=== PATIENT | male | born 1970 | race Caucasian/White ===

== ENCOUNTER 2023-12-22 21:28 | Emergency (ER) | payer OTHER, SELFPAY ==
--- NOTE | ~2023-12-22 | XR_ITS ---
EXAMINATION: [id number] DATE: 12/22/2023 23:43 INDICATION: Cervical radiculopathy. Left arm numbness. TECHNIQUE: 3 views of cervical spine were obtained. COMPARISON: Cervical spine radiographs 03/29/2014 FINDINGS: There is 2 mm anterolisthesis of C7 on T1. There is mildly decreased disc height at C3-C4 a nd C5-C6 and moderately decreased disc height at C6-C7. There is multilevel facet joint osteoarthriti s, severe at multiple levels bilaterally. There is mild central canal stenosis at C3-C4, C4-C5, C5-C6 , and C6-C7. No prevertebral soft tissue swelling. IMPRESSION: 1. Moderate cervical spondylosis. Reviewed, dictated and finalized at location E.
[2023-12-22 21:31] VITALS: BP 176/80; PULSE 90; RESP 16; TEMP 36.6; O2SAT 99
[2023-12-22 21:45] VITALS: BP 162/83; PULSE 92; RESP 18; O2SAT 100
[2023-12-22 21:47] LABS: Basophils Percent Auto 0.3 % (0.2-1.2); Eosinophils Absolute Auto 0.1 K/mm3 (0-0.3); Eosinophils Percent Auto 0.8 % (0-4.4); Hemoglobin 13.7 g/dL (14.0-18.0); Immature Granulocyte Absolute 0.04 K/mm3 (0.00-0.031); Immature Granulocyte Percent A 0.3 % (0-0.5); Lymphocytes Absolute Auto 4.19 K/mm3 (0.9-3.2); Lymphocytes Percent Auto 34.8 % (18.3-44.2); Mean Corpuscular HGB Conc 32.6 g/dl (32-36); Mean Corpuscular Hemoglobin 29.7 pg (26-34); Mean Corpuscular Volume 90.9 fl (80-100); Monocytes Absolute Auto 0.6 K/mm3 (0.1-0.6); Monocytes Percent Auto 4.9 % (2.6-8.5); Neutrophils Absolute Auto 7.1 K/mm3 (1.3-6.7); Neutrophils Percent Auto 58.9 % (45.5-73.1); Platelet Count Result 181 k/mm3 (150-375); Red Blood Count 4.62 M/mm3 (4.6-6.20); Red Cell Distribution Width 13.4 % (11.5-14.5); White Blood Count 12.1 K/mm3 (4.5-10.0)
[2023-12-22 21:49] VITALS: BP 161/83; BP 162/83; PULSE 85; PULSE 86
[2023-12-22 21:50] VITALS: BP 152/86; PULSE 95
[2023-12-22 22:01] VITALS: BP 149/80; PULSE 78; RESP 18; O2SAT 96
[2023-12-22 22:22] LABS: Alanine Aminotransferase 25 U/L (6-50); Alkaline Phosphatase 70 U/L (38-126); Anion Gap 10 mmol/L (4-12); Aspartate Amino Transferase 28 U/L (17-59); Bilirubin,Total 0.6 mg/dL (0.2-1.3); Blood Urea Nitrogen 22 mg/dL (9-20); Calcium 9.1 mg/dL (8.4-10.2); Carbon Dioxide 29 mmol/L (22-30); Chloride 100 mmol/L (98-107); Estimated CRCL calculation 78 ml/min; Estimated Glomerular Filt Rate > 60; Glucose 132 mg/dL (65-110); Lipase 168 U/L (23-300); Potassium 4.2 mmol/L (3.4-5.0); Sodium 139 mmol/L (137-145)
[2023-12-22 22:44] LABS: Appearance Urine Clear (Clear); Bilirubin Urine Negative (Negative); Blood Urine Negative (Negative); Color Urine Yellow (Yellow); Glucose Urine UA Negative (Negative); Ketones Urine Trace mg/dL (Negative); Leukocyte Esterase Ur Negative LEU/UL (Negative); Nitrate Urine Negative (Negative); Protein Urine Negative (Negative); Specific Grav Ur 1.007 (1.001-1.035); Urobilinogen Urine 0.2 mg/dL (<2.0); pH Urine 5.5 (5.0-9.0)
[2023-12-22 22:46] LABS: Add Urine Microscopic? NO
--- NOTE | 2023-12-22 23:15 | ECG_ITS ---
Test Date: 2023-12-22 23:27:38 Measurements Intervals [place] Rate: 69 P: 54 MO: 157 QRS: -80 QRSD: 118 T: 46 QT: 414 QTc: 445 Interpretive Statements SINUS RHYTHM LOW QRS VOLTAGE IN PRECORDIAL LEADS INCOMPLETE RIGHT BUNDLE BRANCH BLOCK LEFT ANTERIOR FASCICULAR BLOCK BASELINE ARTIFACT- I, AVR, AVL ABNORMAL ECG No previous ECG available for comparison Electronically Signed On 12-23-2023 06:46:20 CDT by Brett Valdivia D.O.
[2023-12-22 23:41] LABS: Troponin I < 0.012 ng/mL (0.000-0.034)
--- NOTE | 2023-12-22 23:48 | ED.GENADULT ---
HPI - General Adult General Chief complaint: Nausea/Vomiting/Diarrhea Stated complaint: left arm numb, nausea Time Seen by Provider: 12/22/23 22:25 History of Present Illness HPI narrative: patient is a 53-year-old male who presents ER with complaints of left arm numbness. Intermittent since July of this year. Has been doing physical therapy on his neck. Reports it is worse when he is typing or on his phone typing as well. It will last for seconds. No focal weakness. Occasionally he will have to shake his arm to make it wake up. no exertional chest pain or discomfort going down arm when walking were performing labor type activities. Today he was in the kitchen and got nauseous felt like he should be evaluated because too much is been going on. He has not yet had any imaging of his neck. He has not had an EMG. His doctors currently out of town. Related Data Home Medications Medication Instructions Recorded Confirmed diclofenac sodium 75 mg mg PO 12/22/23 tablet,delayed release dulaglutide 0.75 mg/0.5 mL mg subcut 12/22/23 subcutaneous pen injector ([facility]) lisinopril 10 mg tablet mg 12/22/23 metformin 500 mg tablet,extended mg PO 12/22/23 release 24 hr Allergies Allergy/AdvReac Type Severity Reaction Status Date / Time cefazolin Allergy Mild Difficulty Verified 12/22/23 21:33 Swallowing erythromycin base Allergy Mild Difficulty Verified 12/22/23 21:33 Swallowing Review of Systems Review of Systems: All systems reviewed & are unremarkable except as noted in HPI and below Constitutional: Constitutional: Reports no additional constitutional complaints ENT: Reports system reviewed and no additional complaints, except as documented Cardiovascular: Cardiovascular: Reports no additional cardiovascular complaints Respiratory: Respiratory: Reports no additional respiratory complaints Musculoskeletal: Musculoskeletal: Reports no additional musculoskeletal complaints Neurologic: Denies headache(s), Denies focal weakness and Reports numbness PMFSH Past Medical History Medical History (Updated 12/23/23 @ 01:28 by Chandan Ngo MD) Diabetes GERD (gastroesophageal reflux disease) Hypertension Family History Family History (System 03/03/22 @ 11:46 by Pattie Luu) Other Diabetes mellitus Family history of arthritis Family history of malignant neoplasm Social History Social History (System 03/03/22 @ 11:46 by Pattie Luu) Smoking status: Never smoker Alcohol intake: current Exam Narrative: GENERAL: Well-appearing, well-nourished, and in no acute distress. HEAD: Normocephalic, atraumatic. ENT: Mucous membranes moist. NECK: Supple. No paraspinal tenderness. CHEST: Clear to auscultation. No respiratory distress. HEART: Regular rate and rhythm. Normal peripheral pulses. ABDOMEN: Soft, nontender, nondistended. EXTREMITIES: Normal range of motion. No edema. SKIN: Warm, dry, no rash. NEURO: Alert and oriented x3. no focal numbness of the left upper extremity. PSYCH: Normal mood and affect. Course Course Emergency Course: Patient resting comfortably. Informed results. Blood pressure normalized on its own. No evidence of injury to the heart. Patient has moderate cervical spondylosis on x-ray. Recommend follow-up with PCP. May need nerve conduction study or MRI. Vital Signs Vital signs: Vital Signs Temperature 97.9 F 12/22/23 21:31 Pulse Rate 90 12/22/23 21:31 Respiratory Rate 16 12/22/23 21:31 Blood Pressure 176/80 H 12/22/23 21:31 Pulse Oximetry 99 12/22/23 21:31 Oxygen Delivery Room Air 12/22/23 21:31 Temperature 97.9 F 12/22/23 21:31 Pulse Rate 72 12/23/23 00:35 Respiratory Rate 16 12/23/23 00:35 Blood Pressure 138/88 12/23/23 00:35 Pulse Oximetry 96 12/23/23 00:35 Oxygen Delivery Room Air 12/22/23 21:31 Medical Decision Making Vital Signs Vital Signs: Vital Signs
[2023-12-23 00:35] VITALS: BP 138/88; PULSE 72; RESP 16; O2SAT 96
[2023-12-23 01:38] VITALS: BP 130/66; PULSE 75; RESP 15; O2SAT 100
== END 2023-12-23 01:39 | disposition home or self-care (01) ==
PROVIDERS: Emergency Provider Emergency Medicine; PCP Nurse Practitioner
DX: M47.22 Other spondylosis with radiculopathy, cervical region (principal); I10 Essential (primary) hypertension; E11.9 Type 2 diabetes mellitus without complications; K21.9 Gastro-esophageal reflux disease without esophagitis; Z79.84 Long term (current) use of oral hypoglycemic drugs; Z79.85 Long-term (current) use of injectable non-insulin antidiabetic drugs; Z79.899 Other long term (current) drug therapy
CPT/HCPCS: 36415; 72040; 80053; 81003; 83690; 84484; 85025; 93005; 99284